=== PATIENT | male | born 1985 | race Two or more races ===

== ENCOUNTER 2016-12-31 21:22 | Emergency (ER) | payer OTHER ==
[~2016-12-31] VITALS: Ht 167.6 cm; Wt 106.6 kg
[2016-12-31] MEDS ORDERED: NKM (21:39)
[2016-12-31] MEDS ORDERED: Tetanus/Diptheria/Pertussis Vaccine 0.5ml Syr IM ONE (22:00)
[2016-12-31] MEDS ORDERED: Norco 5mg/325mg tab ONE (22:13)
[2016-12-31] MEDS ORDERED: Norco 5mg/325mg tab ORAL ONE (22:15)
[2016-12-31 22:17] VITALS: BP 163/98
[2016-12-31] MEDS ORDERED: IBUPROFEN600 MG ORAL (22:21)
[2016-12-31] MEDS ORDERED: KEFLEX500 MG ORAL (22:21)
--- NOTE | 2016-12-31 22:22 | Emergency Room Report ---
History of Present Illness General Chief Complaint: Laceration Source: Patient Present Illness HPI Is a 31-year-old male who is left-hand dominant. He presents with laceration to his right hand. 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 He sustained laceration to right palm. Onset prior to arrival. Tetanus is not up-to-date. Bleeding controlled. No other injury. Pain is 7/10. Throbbing in nature Allergies: Coded Allergies: No Known Allergies (Unverified , 12/31/16) Patient History Past Medical History: see triage record, old chart reviewed, DM Past Surgical History: none Pertinent Family History: none Social History: Denies: smoking Immunizations: other Reviewed Nursing Documentation: PMH: Agreed, PSxH: Agreed Nursing Documentation-PMH Hx Hypertension: Yes Hx Diabetes: Yes Review of Systems Eye: Denies: blurred vision, eye pain ENT: Denies: ear pain, nose congestion, throat swelling Respiratory: Denies: cough, shortness of breath Cardiovascular: Denies: chest pain, palpitations Gastrointestinal: Denies: abdominal pain, diarrhea, nausea, vomiting Musculoskeletal: Denies: back pain, joint pain Skin: Denies: rash Neurological: Denies: headache, numbness Endocrine: Denies: increased thirst, increased urine Hematologic/Lymphatic: Denies: easy bruising All Other Systems: negative except mentioned in HPI Physical Exam Vital Signs Date Time Temp Pulse Resp B/P Pulse Ox O2 Delivery O2 Flow Rate FiO2 12/31/16 21:36 98.1 90 14 163/98 97 Room Air vitals with hypertension Sp02 EP Interpretation: reviewed, normal General Appearance: well appearing, no apparent distress, alert Head: normocephalic, atraumatic Eyes: bilateral eye EOMI, bilateral eye PERRL ENT: hearing grossly normal, normal pharynx Neck: full range of motion, supple, no meningismus Respiratory: chest non-tender, lungs clear, normal breath sounds Cardiovascular #1: regular rate, rhythm, no murmur Gastrointestinal: normal bowel sounds, non tender, no mass, no organomegaly, no bruit, non-distended Musculoskeletal: back normal, gait/station normal, normal range of motion, other - 4 cm laceration to the palm of the right hand. No foreign body. No tendon laceration. Sensation normal. Psychiatric: mood/affect normal Skin: warm/dry Procedures Laceration/Wound Repair Laceration/Wound Repair : Consent: Verbal Wound Location: upper extremity Wound's Depth, Shape: linear Wound Length (cm): 4 Wound Explored: clean Irrigated w/ Saline (ccs): 1000 Anesthesia: 1% Lidocaine Volume Anesthetic (ccs): 4 Wound Repaired With: sutures Suture Size/Type: 5:0, proline Number of Sutures: 1 Layer Closure?: No Sterile Dressing Applied?: Yes Patient Tolerated: Well Complications: None Progress local anesthetic with 1% lidocaine without epinephrine. After anesthesia, explored the wound. No foreign body. No tendon laceration. Wound irrigated with a liter of IV fluid. I placed 1 continuous suture. this is equivalent to 7 interrupted sutures. Patient tolerated procedure without a problem. Medical Decision Making Diagnostic Impression: Primary Impression: Laceration of right hand Qualified Codes: S61.411A - Laceration without foreign body of right hand, initial encounter ER Course Patient with a laceration to his right hand. No foreign body. No tendon laceration. Low risk for infection. Last Vital Signs Date Time Temp Pulse Resp B/P Pulse Ox O2 Delivery O2 Flow Rate FiO2 12/31/16 22:17 98.1 14 163/98 97 Room Air 12/31/16 21:36 90 Status: improved Disposition: HOME, SELF-CARE Condition: Stable Scripts Ibuprofen* (MOTRIN*) 600 Mg Tablet 600 MG ORAL Q8H Y for For Pain, #30 TAB 0 Refills Prov: CHON CARTER M.D. 12/31/16 Cephalexin* (KEFLEX*) 500 Mg Capsule 500 MG ORAL TID, #21 CAP 0 Refills Prov: CHON CARTER M.D. 12/31/16 Patient Instructions: Laceration Care, Adult Additional Instructions: Followup with Worker's Comp. within 7-10 days. Suture out in 7-10 days. Return for evidence of infection. CHON CARTER M.D. Dec 31, 2016 22:22
[2016-12-31 22:33] VITALS: BP 163/98
== END 2016-12-31 22:33 | disposition home or self-care (01) ==
LOC: EMR 21:46
DX: S61.411A Laceration without foreign body of right hand, initial encounter (principal); Z23 Encounter for immunization; E11.9 Type 2 diabetes mellitus without complications; I10 Essential (primary) hypertension; W26.0XXA Contact with knife, initial encounter; Y93.G1 Activity, food preparation and clean up; Y92.511 Restaurant or cafe as the place of occurrence of the external cause; Y99.0 Civilian activity done for income or pay
CPT/HCPCS: 90471; 90715; 96372

== ENCOUNTER 2018-07-24 20:22 | Emergency (ER) | payer OTHER ==
[~2018-07-24] VITALS: Ht 167.6 cm; Wt 106.6 kg
[~2018-07-24 20:22] MED LIST: IBUPROFEN600 MG ORAL; KEFLEX500 MG ORAL; NKM
--- NOTE | 2018-07-24 20:35 | NUR ---
ED Nurse Note: Patient walk in c/o laceration to top of 3rd digit on right hand. Patient states injury happened at 1930 while at work. AO4. NAD. VSS
[2018-07-24 20:58] VITALS: BP 158/87
--- NOTE | 2018-07-24 21:27 | Emergency Room Report ---
History of Present Illness General Chief Complaint: Laceration Source: Patient Present Illness HPI This is a 32-year-old male who is left-hand dominant. He presents with chief complaint of right finger injury. He works as a cook at a nearby restaurant. He was cutting and cut off a piece of the skin of the right middle finger. It was bleeding. No other injury. Tetanus up-to-date. Minimal pain. Worse with movement. Better with pressure. Allergies: Coded Allergies: No Known Allergies (Unverified , 12/31/16) Patient History Past Medical History: see triage record, old chart reviewed, DM, HTN Past Surgical History: none Pertinent Family History: none Social History: Denies: smoking Immunizations: UTD Reviewed Nursing Documentation: PMH: Agreed; PSxH: Agreed Nursing Documentation-PMH Past Medical History: No History, Except For Hx Cardiac Problems: No - high cholesterol Hx Hypertension: Yes Hx Diabetes: Yes - type 2 Review of Systems Eye: Denies: eye pain, blurred vision ENT: Denies: ear pain, nose congestion, throat swelling Respiratory: Denies: cough, shortness of breath Cardiovascular: Denies: chest pain, palpitations Gastrointestinal: Denies: abdominal pain, diarrhea, nausea, vomiting Musculoskeletal: Denies: back pain, joint pain Skin: Denies: rash Neurological: Denies: headache, numbness Endocrine: Denies: increased thirst, increased urine Hematologic/Lymphatic: Denies: easy bruising All Other Systems: negative except mentioned in HPI Physical Exam Vital Signs Date Time Temp Pulse Resp B/P (MAP) Pulse Ox O2 Delivery O2 Flow Rate FiO2 07/24/18 20:34 97.7 86 16 158/87 98 Room Air vitals with high blood pressure Sp02 EP Interpretation: reviewed, normal General Appearance: well appearing, no apparent distress, alert Head: normocephalic, atraumatic Eyes: bilateral eye PERRL, bilateral eye EOMI ENT: hearing grossly normal, normal pharynx Neck: full range of motion, supple, no meningismus Respiratory: chest non-tender, lungs clear, normal breath sounds Cardiovascular #1: regular rate, rhythm, no murmur Gastrointestinal: normal bowel sounds, non tender, no mass, no organomegaly, no bruit, non-distended Musculoskeletal: back normal, gait/station normal, normal range of motion, other - Right middle finger: There is a 1 cm skin avulsion off of the DIP joint. No tendon laceration. Full range of motion. No bony injury. Sensation normal. Neurologic: alert, oriented x3 Psychiatric: mood/affect normal Skin: warm/dry Medical Decision Making Diagnostic Impression: Primary Impression: Avulsion of skin of finger Qualified Codes: S61.209A - Unspecified open wound of unspecified finger without damage to nail, initial encounter ER Course Patient with skin avulsion. There is nothing to be sutured. I place Surgicel over the wound and did a pressure dressing. Patient tolerated procedure without a problem. No other injury. Tetanus is up-to-date. Last Vital Signs Date Time Temp Pulse Resp B/P (MAP) Pulse Ox O2 Delivery O2 Flow Rate FiO2 07/24/18 20:58 97.7 78 16 158/87 98 Room Air Status: improved Disposition: HOME, SELF-CARE Condition: Stable Patient Instructions: Nonsutured Laceration Care Additional Instructions: Keep wound clean. Whole pressure bleeding. Follow-up with your employer for Workmen's Comp. doctor in 2-3 days. Return if worse. Tyron Art MD Jul 24, 2018 21:27
[2018-07-24 21:30] VITALS: BP 158/87
--- NOTE | 2018-07-24 21:30 | NUR ---
ED Nurse Note: Patient cleared for discharge per ERMD. AO4. NAD. VSS. Patient given prescriptions and discharge instructions; verbalized understanding. ID band removed. Patient ambulated out with all personal belongings with steady gait.
== END 2018-07-24 21:30 | disposition home or self-care (01) ==
LOC: EMR 21:10
DX: S61.202A Unspecified open wound of right middle finger without damage to nail, initial encounter (principal); W26.0XXA Contact with knife, initial encounter; Y93.G1 Activity, food preparation and clean up; Y92.511 Restaurant or cafe as the place of occurrence of the external cause; Y99.0 Civilian activity done for income or pay; I10 Essential (primary) hypertension; E11.9 Type 2 diabetes mellitus without complications
CPT/HCPCS: 99282